=== PATIENT | male | born 1980 | race Caucasian/White ===

== ENCOUNTER 2019-04-12 11:18 | Emergency (ER) | payer OTHER, MEDICAID ==
[~2019-04-12] VITALS: Ht 185.4 cm; Wt 100.0 kg
[2019-04-12 11:33] VITALS: BP 114/76
[2019-04-12] MEDS ORDERED: LIDOcaine 5% patch TP STA (12:41)
[2019-04-12] MEDS ORDERED: ketorolac tromethamine 15mg/ml inj. IM ONE (12:45)
== END 2019-04-12 13:08 | disposition home or self-care (01) ==
LOC: ER 11:18
DX: S39.012A Strain of muscle, fascia and tendon of lower back, initial encounter (principal); G89.29 Other chronic pain; F17.200 Nicotine dependence, unspecified, uncomplicated; Z98.890 Other specified postprocedural states; X50.1XXA Overexertion from prolonged static or awkward postures, initial encounter; Y93.89 Activity, other specified; Y92.89 Other specified places as the place of occurrence of the external cause; Y99.9 Unspecified external cause status
CPT/HCPCS: 96372; 99284; J1885

== ENCOUNTER 2020-02-22 12:09 | Emergency (ER) | payer OTHER ==
[~2020-02-22] VITALS: Ht 185.4 cm; Wt 80.2 kg
[2020-02-22 14:16] VITALS: BP 109/65
== END 2020-02-22 14:19 | disposition home or self-care (01) ==
LOC: ER 12:11
DX: S20.222A Contusion of left back wall of thorax, initial encounter (principal); M25.511 Pain in right shoulder; M25.512 Pain in left shoulder; G89.29 Other chronic pain; Z98.890 Other specified postprocedural states; Z60.2 Problems related to living alone; Y08.89XA Assault by other specified means, initial encounter; Y93.89 Activity, other specified; Y92.219 Unspecified school as the place of occurrence of the external cause; Y99.8 Other external cause status
CPT/HCPCS: 71045; 99284

== ENCOUNTER 2021-09-30 10:45 | Emergency (ER) | payer OTHER, MEDICAID ==
[~2021-09-30] VITALS: Ht 185.4 cm; Wt 102.3 kg
[2021-09-30] MEDS ORDERED: AMOX-422 PO (11:13)
[2021-09-30 11:35] VITALS: BP 119/75
== END 2021-09-30 11:56 | disposition home or self-care (01) ==
LOC: ER 10:45
DX: H66.92 Otitis media, unspecified, left ear (principal); R50.9 Fever, unspecified; H92.02 Otalgia, left ear; G89.29 Other chronic pain; Z72.89 Other problems related to lifestyle; Z98.890 Other specified postprocedural states; Z60.2 Problems related to living alone; Z88.2 Allergy status to sulfonamides; Z88.8 Allergy status to other drugs, medicaments and biological substances; Z79.2 Long term (current) use of antibiotics
CPT/HCPCS: 99283

== ENCOUNTER 2022-01-23 08:07 | Emergency (ER) | payer OTHER, MEDICAID ==
[~2022-01-23] VITALS: Ht 185.4 cm; Wt 104.5 kg
[2022-01-23 08:10] VITALS: BP 124/75
== END 2022-01-23 08:42 | disposition home or self-care (01) ==
LOC: ER 08:07
DX: H92.03 Otalgia, bilateral (principal); G89.29 Other chronic pain; Z72.89 Other problems related to lifestyle; Z60.2 Problems related to living alone; Z98.890 Other specified postprocedural states; Z88.2 Allergy status to sulfonamides; Z88.8 Allergy status to other drugs, medicaments and biological substances
CPT/HCPCS: 99282